=== PATIENT | male | born 1965 | race Caucasian/White ===

== ENCOUNTER → 2017-07-08 16:59 | Emergency (ER) | payer SELFPAY ==
[~2017-07-08] VITALS: Ht 180.3 cm; Wt 78.7 kg
[~2017-07-08 16:59] MED LIST: CILOXAN 0.100 DROP/5 RIGHT EYE
[2017-07-08 17:23] VITALS: BP 105/69
== END | disposition left against medical advice (07) ==
LOC: EME 16:59
DX: H57.8 Other specified disorders of eye and adnexa (principal); H57.11 Ocular pain, right eye; H53.8 Other visual disturbances; Z53.21 Procedure and treatment not carried out due to patient leaving prior to being seen by health care provider

== ENCOUNTER 2017-07-10 11:31 | Emergency (ER) | payer SELFPAY ==
[~2017-07-10] VITALS: Ht 180.3 cm; Wt 77.3 kg
[2017-07-10] MEDS ORDERED: CILOXAN 0.100 DROP/5 RIGHT EYE (14:28)
[2017-07-10 14:43] VITALS: BP 132/86
== END 2017-07-10 14:43 | disposition home or self-care (01) ==
LOC: EME 11:31
DX: H10.89 Other conjunctivitis (principal); I10 Essential (primary) hypertension; F17.200 Nicotine dependence, unspecified, uncomplicated
CPT/HCPCS: 99281; 99284